=== PATIENT | female | born 1985 | race Caucasian/White ===

== ENCOUNTER 2019-11-20 16:59 | Outpatient (REF) | payer OTHER, SELFPAY ==
--- NOTE | 2019-11-20 15:45 | PAPFT_PTH ---
PATIENT: Sandra Reyna LOC: [facility] U#:[id number] AGE/SX: 34/F ROOM: RE11/20/[address]: Jesi Field : 1985 BED: DIS: 11/20/2019 SPEC #: [id number] RECD: 11/21/19 13:13 STATUS: ANA REQ #: [id number] AMITA: 11/20/19 15:[address]: Jesi Feild DEPT: [facility] Cytology RECD BY: Val Deluca ENTERED: 11/21/19 13:13 SP TYPE: PAPFT OTHR DR: Jasmin Retana Tissues: 1 - CX/ENDOCX FOR PAP SMEARS Procedures: PAP THIN PREP/[facility]VM Screening Comments: [id number] (CHLAMYDIA/GC) (UNSATISFACTORY FOR EVALUATION)
[2019-11-22 11:04] LABS: HSV Type 1 Ab, IgG Negative (Negative); HSV Type 2 Ab, IgG Negative (Negative)
[2019-11-22 11:50] LABS: Syphilis Serology (RPR) Negative (Negative)
[2019-11-22 12:50] LABS: HIV-1/2 Ag & Ab Screen Negative (Negative)
[2019-11-22 13:35] LABS: Chlamydia Result Negative (Negative); GC Result Negative (Negative)
== END 2019-11-20 17:19 ==
LOC: NCHCN 16:59
PROVIDERS: Visit Provider Family Medicine
DX: Z11.3 Encounter for screening for infections with a predominantly sexual mode of transmission (principal); Z11.4 Encounter for screening for human immunodeficiency virus [HIV]; Z11.59 Encounter for screening for other viral diseases; Z12.4 Encounter for screening for malignant neoplasm of cervix; Z11.51 Encounter for screening for human papillomavirus (HPV); R87.615 Unsatisfactory cytologic smear of cervix
CPT/HCPCS: 87389; 87491; 87591; 88142; 86592; 86695; 86696

== ENCOUNTER 2020-09-21 13:36 | Outpatient (REF) | payer OTHER, SELFPAY ==
--- NOTE | 2020-09-21 10:00 | PAPFT_PTH ---
PATIENT: Sandra Reyna LOC: [facility] U#:[id number] AGE/SX: 35/F ROOM: RE09/21/[address]: Jesi Field : 1985 BED: DIS: 09/21/2020 SPEC #: [id number] RECD: 09/21/20 18:02 STATUS: ANA JENSEN #: [id number] AMITA: 09/21/20 10:[address]: Jesi Field [facility] Cytology RECD BY: Val Deluca ENTERED: 09/21/20 18:03 SP TYPE: PAPFT OTHR DR: Jasmin Retana Tissues: 1 - CX/ENDOCX FOR PAP SMEARS Procedures: PAP THIN PREP/UVM Screening HPV DNA PROBE Comments: [id number]
== END 2020-09-21 13:37 | disposition home or self-care (01) ==
LOC: NCHCN 13:36
PROVIDERS: Visit Provider Family Medicine
DX: Z00.00 Encounter for general adult medical examination without abnormal findings (principal); Z12.4 Encounter for screening for malignant neoplasm of cervix; Z01.419 Encounter for gynecological examination (general) (routine) without abnormal findings; Z11.51 Encounter for screening for human papillomavirus (HPV)
CPT/HCPCS: 88142; 87624

== ENCOUNTER 2020-10-07 16:55 | Outpatient (REF) | payer OTHER, SELFPAY ==
[2020-10-09 11:43] LABS: COVID-19 RT-PCR UVMMC Result Negative (Negative)
== END 2020-10-07 16:56 | disposition home or self-care (01) ==
LOC: NCHCN 16:55
PROVIDERS: Visit Provider Family Medicine
DX: Z20.822 Contact with and (suspected) exposure to COVID-19 (principal); J06.9 Acute upper respiratory infection, unspecified
CPT/HCPCS: U0003

== ENCOUNTER 2022-04-07 13:54 | Outpatient (REF) | payer OTHER, SELFPAY ==
[2022-04-07 16:47] LABS: Bacteria Rare HPF (Negative); C & S Indicated? C&S Done As Ordered; Casts Negative LPF (Negative); Crystals Negative HPF (Negative); Epithelial Cells Few HPF (Negative); Mucus Negative (Negative); RBC 0-2 HPF (0-2)
== END 2022-04-07 13:55 | disposition home or self-care (01) ==
LOC: LBN 13:54
PROVIDERS: Visit Provider Physician Assistant Medical
DX: R10.9 Unspecified abdominal pain (principal)
CPT/HCPCS: 81015; 87086

== ENCOUNTER 2022-04-12 02:39 | Outpatient (CLI) | payer OTHER, SELFPAY ==
[2022-04-12] MEDS: Albuterol HFA 18 GM 200 PUFF INH IH (13:56)
[2022-04-12] MEDS: Inhaler, Assist Device 1 EACH MC (13:57)
--- NOTE | 2022-04-13 16:29 | W.PFT ---
Date of service: 04/12/22 Time of Service: 13:02 Pulmonary Function Test Result Requesting Provider Catracho Ramirez Indications: Post acute sequela of COVID 19 (PASC) Interpretation Spirometry: There is no airflow limitation. There is no significant bronchodilator response. Lung Volumes: Normal lung volumes. Diffusion Capacity: Normal diffusion. Airway Pressure: Normal airways resistance. Impression Normal pulmonary function testing. Clinical Correlation therefore is recommended.
== END 2022-04-12 02:40 | disposition home or self-care (01) ==
LOC: RT 02:39
PROVIDERS: Visit Provider Family Medicine
DX: U09.9 Post COVID-19 condition, unspecified (principal)
CPT/HCPCS: 94060; 94726; 94729

== ENCOUNTER 2022-09-30 11:14 | Outpatient (REF) | payer SELFPAY ==
[2022-09-30 15:21] LABS: ESR 36 mm/hr (0-20)
[2022-09-30 15:25] LABS: Abs Immature Grans 0.04 10^3/uL (0.0-0.06); Absolute Basophil Count 0.11 10^3/uL (0.0-0.2); Absolute Lymphocyte Count 3.35 10^3/uL (1.2-3.4); Basophils % 0.9; Eosinophils % 2.8; HCT 41.5 % (36.0-46.0); HGB 14.2 g/dL (11.2-15.7); Immature Grans % 0.3; Lymphocytes % 27.2; MCH 28.8 pg (27.0-33.0); MCHC 34.2 % (32.0-36.0); MCV 84 fL (80-95); MPV 10.7 fL (8.0-11.0); Monocytes % 7.2; Neutrophils % 61.6; Platelet Count 374 10^3/uL (130-400); RBC 4.93 10^6/uL (3.93-5.22); RDW 11.9 % (11.7-14.6); RDW-SD 35.9 fL
[2022-09-30 15:26] LABS: Absolute Eosinophil Count 0.34 10^3/uL (0.0-0.7); Absolute Monocyte Count 0.89 10^3/uL (0.1-0.8); Absolute Neutrophil Count 7.58 10^3/uL (1.2-6.7)
[2022-09-30 16:06] LABS: ALT 32 U/L (14-59); AST 14 U/L (15-37); Albumin 4.1 g/dL (3.4-5.0); Alkaline Phosphatase 84 U/L (46-116); Anion Gap 11.2 mmol/L (3-11); BUN 13 mg/dL (7-18); Bilirubin, Total 0.5 mg/dL (0.2-1.0); C-Reactive Protein 1.89 mg/dL (0.0-0.3); CO2 24.8 mmol/L (21.0-32.0); CREATININE 0.8 mg/dL (0.55-1.02); Calcium 9.5 mg/dL (8.5-10.1); Chloride 106 mmol/L (98-107); Estimated GFR 97.87 (mL/min/1.73m2); Glucose 124 mg/dL (74-106); Potassium 4.2 mmol/L (3.5-5.1); Sodium 142 mmol/L (136-145); TSH (W/Ref FT4) 2.99 uIU/mL (0.36-3.74); Total Protein 7.8 g/dL (6.4-8.2)
[2022-10-02 19:33] LABS: Anaplasma phagocytophilum Negative (Negative); B. miyamotoi PCR Negative (Negative); Babesia divergens/MO-1 Negative (Negative); Babesia duncani Negative (Negative); Babesia microti Negative (Negative); Ehrlichia chaffeensis Negative (Negative); Ehrlichia ewingii/canis Negative (Negative); Ehrlichia muris eauclairensis Negative (Negative)
[2022-10-03 10:19] LABS: Lyme Ab w Rflx to Lyme Confirm Negative (Negative)
== END 2022-09-30 11:15 | disposition home or self-care (01) ==
LOC: NCHCN 11:14
PROVIDERS: PCP Family Medicine; Visit Provider Family Medicine
DX: R53.83 Other fatigue (principal); R50.9 Fever, unspecified; M25.50 Pain in unspecified joint
CPT/HCPCS: 80053; 85652; 87798; 84443; 85025; 86140; 86618

== ENCOUNTER 2024-02-23 01:10 | Outpatient (CLI) | payer BC, SELFPAY ==
--- OUTSIDE RECORDS SUMMARY | 2024-02-23 01:43 | XMS_ITS | Encounter Summary ---
Author Organization [facility] Address [address] [place] [address] Care Team Providers Care Apprentice Lineman Third Step Name Role Phone Unknown, Provider Primary Care Provider Encounter Details Date Type Department Care Team (Latest Contact Info) Description 09/22/2020 Lab Requisition [facility] Pathology & Laboratory Medicine - [facility] [address] [place], [place] [address] Jesi Field MD [address] [place] [address] [phone] Encounter for general adult medical examination without abnormal findings; Encounter for screening for malignant neoplasm of cervix; Encounter for gynecological examination (general) (routine) without abnormal findings Social History Tobacco Use Types Packs/Day Years Used Date Smoking Tobacco: Never Assessed Sex and Gender Information Value Date Recorded Sex Assigned at Not on file Gender Identity Not on file Sexual Orientation Not on file documented as of this encounter Plan of Treatment Not on file documented as of this encounter Procedures Procedure Name Priority Date/Time Associated Diagnosis Comments PAP TEST Today 09/21/2020 10:00 EDT Encounter for general adult medical examination without abnormal findings Encounter for screening for malignant neoplasm of cervix Encounter for gynecological examination (general) (routine) without abnormal findings HPV DNA DETECTION WITH GENOTYPING, PCR Today 09/21/2020 10:00 EDT Encounter for general adult medical examination without abnormal findings Encounter for screening for malignant neoplasm of cervix Encounter for gynecological examination (general) (routine) without abnormal findings documented in this encounter Results * HUMAN PAPILLOMAVIRUS (HPV) DETECTION-HIGH RISK TYPES (09/21/2020 10:00 EDT) HPV other High Risk types, PCR Negative Negative 09/29/2020 16:22 EDT [facility] Comment:No E6 or E7 mRNA is detected from HPV types 16,18,31,33,35,39,45,51,52,56,58,59,66, and 68 by shot peen operator mediated amplification. Papanicolaou smear specimen (specimen) CERVIX UTERI STRUCTURE / Unknown 09/21/2020 10:00 EDT 09/25/2020 13:04 EDT Jesi Field MD MICROBIOLOGY - GENER AL ORDERABLES [facility] [address] [place] [address] * PAP TEST (09/21/2020 10:00 EDT) Specimens A. Cervix and/or Endocervix , ThinPrep Imaging System with Manual Evaluation 09/29/2020 16:22 [facility] Specimen Adequacy Satisfactory for Evaluation - transformation zone component present 09/29/2020 16:22 [facility] General Categorization Negative for intraepithelial lesion or malignancy 09/29/2020 16:22 [facility] Descriptive Diagnosis Shift in milana present suggestive of bacterial vaginosis. 09/29/2020 16:22 [facility] Attestation . 09/29/2020 16:22 [facility] at 1622 Clinical History See below 09/30/19 16:22 [facility] HPV The result for the Human Papillomavirus (HPV) Detection-High Risk Types is Negative. No E6 or E7 mRNA is detected from HPV types 16,18,31,33,35,39 ,45,51,52,56,58,5 9,66, and 68 by shot peen operator mediated amplification.Lorena ting was performed on specimen [id number] and was resulted on 09/29/2020 1619 EDT by JITENDRA, LAB INSTRUMENT RESULTS IN 09/29/2020 16:22 EDT [facility] Performing Lab [facility] 09/29/2020 16:22 EDT [facility] Scanned Images 09/29/2020 16:22 EDT [facility] Papanicolaou smear specimen (specimen) CERVIX UTERI STRUCTURE / Unknown 09/21/2020 10:00 EDT 09/22/2020 10:42 EDT Jesi Field MD PATHOLOGY ORDERABLES [facility] [address] [place] [address] documented in this encounter Visit Diagnoses Diagnosis Encounter for general adult medical examination without abnormal findings Unspecified general medical examination Encounter for screening for malignant neoplasm of cervix Screening for malignant neoplasm of the cervix Encounter for gynecological examination (general) (routine) without abnormal findings documented in this encounter Care Teams Apprentice Lineman Third Step Relationship Specialty Start Date End Date Unknown, Provider, PCP - General 09/19/17 documented as of this encounter
--- OUTSIDE RECORDS SUMMARY | 2024-02-23 01:43 | XMS_ITS | Encounter Summary ---
Author Organization [facility] Address [address] [place] [address] Care Team Providers Care Critical Care Transport Nurse Name Role Phone Unknown, Provider Primary Care Provider [phone] Encounter Details Date Type Department Care Team (Late st Contact Info) Description 12/23/2008 Orders Only [facility] - [facility] ([facility] [address] [place], [place] [address] Kathi Hernandez, [facility] [address] [place] [phone] Social History Tobacco Use Types Packs/Day Years Used Date Smoking Tobacco: Never Assessed Sex and Gender Information Value Date Recorded Sex Assigned at Not on file Gender Identity Not on file Sexual Orientation Not on file documented as of this encounter Plan of Treatment Not on file documented as of this encounter Procedures Procedure Name Priority Date/Time Associated Diagnosis Comments CYTOPATHOLOGY Routine 12/23/2008 0:00 EDT documented in this encounter Results * CYTOPATHOLOGY (12/23/2008 0:00 EDT) Pathology Report: CYTOPATHOLOGY REPORT ? Reports generated via electronic interface contain original data; ? however they are lacking the format of the original report. ? Caution should be taken when reading/interpreti ng unformatted reports. ? Name: ? CHUN, SANDRA ? Accession #: ? [id number] ? : ? 1985 (Age: 23) ??F ?Collect Date: ? 12/23/2008 ? Location: ? [facility] ? Receive Date: ? 12/24/2008 ? Provider: ?KATHI LATOYA DONOR SERVICES TEAM LEADER ? Copy to: ? Specimen/Source: ?Pap Test, Cervix/Endocervix, ThinPrep Imaging System ? with manual evaluation ? Last Menstrual Period: ? 6/29/09 ? Other: ? HPVA - HPV testing requested if ASC-US on the current ThinPrep Pap test. ? SPECIMEN ADEQUACY ? Satisfactory for Evaluation ? - transformation zone component present ? GENERAL CATEGORIZATION ? Negative for Intraepithelial Lesion or Malignancy ? Document reviewed and electronically signed by: ? Grace Neal, [place](ASCP) ? Report Date: ??12/29/2008 14:40 ? End of Report ? [facility] 12/23/2008 12/24/2008 Kathi Hernandez DONOR SERVICES TEAM LEADER PATHOLOGY ORDERABLES [facility] [address] [place] [address] documented in this encounter Visit Diagnoses Not on filedocumented in this encounter Care Teams Critical Care Transport Nurse Relationship Specialty Start Date End Date Unknown, Provider, PCP - General 12/24/08 12/15/10 documented as of this encounter
--- OUTSIDE RECORDS SUMMARY | 2024-02-23 01:43 | XMS_ITS | Encounter Summary ---
Author Organization [facility] Address [address] [place] [address] Care Team Providers Care Dag Coater Name Role Phone William Carrero MD Primary Care Provider Un available Unknown, Provider Primary Care Provider [phone] Encounter Details Date Type Department Care Team (Late st Contact Info) Description 09/15/[address] [facility] [phone] Latrice Chopra, [address] [phone] Social History Tobacco Use Types Packs/Day Years Used Date Smoking Tobacco: Never Assessed Sex and Gender Information Value Date Recorded Sex Assigned at Not on file Gender Identity Not on file Sexual Orientation Not on file documented as of this encounter Plan of Treatment Not on file documented as of this encounter Procedures Procedure Name Priority Date/Time Associated Diagnosis Comments PAP TEST- RESULT ONLY Routine 09/15/2017 0:00 EDT documented in this encounter Results * PAP TEST- RESULT ONLY (09/15/2017 0:00 EDT) Pathology Report: CYTOPATHOLOGY REPORT Reports generated via electronic interface contain original data; however they are lacking the format of the original report. Caution should be taken when reading/interpreti ng unformatted reports. Name: ? SANDRA NAVA ? Accession #: ? [id number] ? : ? 1985 (Age: 32) ??F ?Collect Date: ? 09/15/2017 ? Location: ? [facility] ? Receive Date: ? 09/19/2017 ? Provider: LATRICE ZAPIEN ACCOUNT SUPPORT ASSOCIATE-BC Copy to: ? Final Report SPECIMEN ADEQUACY ? Satisfactory for Evaluation - transformation zone component absent GENERAL CATEGORIZATION ? Negative for Intraepithelial Lesion or Malignancy ?? Last Menstrual Period: 2012 Hormonal/Contracep tive status: Intrauterine device Specimen/Source: ??Pap Test, Cervix, ThinPrep Imaging System with manual evaluation Document reviewed and electronically signed by: ? Sarah Zhou, [facility](ASCP) ? Report ??Date: 09/26/2017 10:26 HPV with Pap Test ? Date Ordered: ? 09/26/2017 ? Status: ?? Signed Out ?Date Complete: ? 09/27/2017 ? By: ??System Interface ? Date Reported: ? 09/27/2017 ? Interpretation RESULT: Negative for HPV. No E6 or E7 mRNA is detected from HPV types 16,18,31,33,35, 39,45,51,52,56,58, 59,66, and 68 by cut off saw operator mediated amplification. Comments Document reviewed and electronically signed by: ? System Interface ? Report date: 09/27/2017 By the signature above, the attending physician certifies that he/she has personally conducted a gross and/or microscopic examination of the described specimens and rendered or confirmed the above diagnosis. End of Report [facility] 09/15/2017 09/19/2017 Latrice Chopra ACCOUNT SUPPORT ASSOCIATE- PATHOLOGY ORDERA LAUREN [facility] [address] [place] [address] documented in this encounter Visit Diagnoses Not on filedocumented in this encounter Care Teams Dag Coater Relationship Specialty Start Date End Date William Carrero MD PCP - General 12/16/10 09/18/17 Unknown, ProviderMD PCP - General 09/19/17 documented as of this encounter
--- OUTSIDE RECORDS SUMMARY | 2024-02-23 01:43 | XMS_ITS | Encounter Summary ---
Author Organization [facility] Address [address] [place] [address] Care Team Providers Care X Ray Consultant Name Role Phone Unknown, Provider Primary Care Provider Encounter Details Date Type Department Care Team (Latest Contact Info) Description 11/21/2019 Lab Requisition [facility] Pathology & Laboratory Medicine - [facility] [address] [place] [address] Jesi Field MD [address] [place] [address] [phone] Encounter for general adult medical examination without [...] Date/Time Associated Diagnosis Comments PAP TEST Today 11/20/2019 15:45 EDT Encounter for general adult medical examination without abnormal findings Encounter for screening for malignant neoplasm of cervix Encounter for gynecological examination (general) (routine) without abnormal findings CHLAMYDIA/N. GONORRHOEAE AMPLIFIED NUCLEIC ACID, THINPREP Today 11/20/2019 15:45 EDT documented in this encounter Results * PAP TEST (11/20/2019 15:45 EDT) Specimens A. Cervix and/or Endocervix , ThinPrep Imaging System with Manual Evaluation 11/28/2019 13:20 [facility] Specimen Adequacy Unsatisfactory for evaluation - insufficient numbers of squamous epithelial cells (less than 10% of expected cellularity). 11/28/2019 13:20 T [facility] General Categorization Unsatisfactory 11/28/2019 13:20 [facility] Attestation . 11/28/2019 13:20 [facility] at 1320 Educational Comments An additional slide was prepared and evaluated. Unsatisfactory - Specimen processed and examined, but unsatisfactory for evaluation of epithelial abnormality. Recommend Pap test in 2-4 months as stated in ASCCP's 2012 Updated Guidelines. HPV testing will not be performed due to the potential for false negative results. 11/28/2019 13:20 EDT [facility] Clinical History NONE 11/28/19 13:20 T [facility] Scanned Images 11/28/2019 13:20 T [facility] Papanicolaou smear specimen (specimen) CERVIX UTERI STRUCTURE / Unknown 11/20/2019 15:45 EDT 11/22/2019 10:46 EDT Jesi Field MD PATHOLOGY ORDERABLES Performing Organization Address City/State/[facility] Co de Phone Number [facility] [address] [place] [address] * CHLAMYDIA/N. GONORRHOEAE AMPLIFIED RNA, THINPREP (11/20/2019 15:45 EDT) Neisseria gonorrhoeae Result Negative Negative 11/22/2019 13:30 EDT [facility] Chlamydia trachomatis Result Negative Negative 11/22/2019 13:30 EDT [facility] Papanicolaou smear specimen (specimen) CERVIX UTERI STRUCTURE / Unknown 11/20/2019 15:45 EDT 11/22/2019 8:54 EDT Jesi Field MD MICROBIOLOGY - GENER AL ORDERABLES [facility] [address] [place] [address] documented in this encounter Visit Diagnoses Diagnosis Encounter for general adult medical examination without abnormal findings Unspecified general medical examination Encounter for screening for malignant neoplasm of cervix Screening for malignant neoplasm of the cervix Encounter for gynecological examination (general) (routine) without abnormal findings documented in this encounter Care Teams X Ray Consultant Relationship Specialty Start Date End Date Unknown, Provider, PCP - General 09/19/17 documented as of this encounter
--- OUTSIDE RECORDS SUMMARY | 2024-02-23 01:43 | XMS_ITS | Clinical Summary ---
Author Organization [facility] [place] [address] Care Team Providers Care Wire Coating Machine Operator Name Role Phone Jasmin Retana MD Primary Care Provider [phone] Allergies No known active allergies Medications No known medications Active Problems Problem Noted Date Diagnosed Date Acute urticaria 05/21/2015 Social History Tobacco Use Types Packs/Day Years Used Date Smoking Tobacco: Never Assessed Sex and Gender Information Value Date Recorded Sex Assigned at Not on file Gender Identity Not on file Sexual Orientation Not on file Plan of Treatment Health Maintenance Due Date Last Done Comments HIV screen 2004 Hepatitis C Screening 2004 Hepatitis B vaccine (0-59 yrs) (1) 2005 Tdap adult 2005 Tetanus vaccine 2005 HPV test 2016 PAP Smear 2016 Covid-19 Vaccine ( season) 2024 Influenza (Flu) vaccine (1 o f 1 - Influenza standard series) 02/18/2024 Care Teams Wire Coating Machine Operator Relationship Specialty Start Date End Date Jasmin Retana MD [address] [place], [place] [id number] PCP - General Family Medicine 05/21/15
--- OUTSIDE RECORDS SUMMARY | 2024-02-23 01:43 | XMS_ITS | Encounter Summary ---
Author Organization [facility] Address [address] [place] [address] Care Team Providers Care Goggles Assembler Name Role Phone Unknown, Provider Primary Care Provider [phone] Encounter Details Date Type Department Care Team (Late st Contact Info) Description 02/02/2006 Results Only [facility] [address] [place] [address] Torrey Bhardwaj MD [address] [place] [address] Social History Tobacco Use Types Packs/Day Years Used Date Smoking Tobacco: Never Assessed Sex and Gender Information Value Date Recorded Sex Assigned at Not on file Gender Identity Not on file Sexual Orientation Not on file documented as of this encounter Plan of Treatment Not on file documented as of this encounter Procedures Procedure Name Priority Date/Time Associated Diagnosis Comments SURGICAL PATHOLOGY Routine 02/02/2006 0:00 EDT documented in this encounter Results * SURGICAL PATHOLOGY (02/02/2006 0:00 EDT) Pathology Report: SURGICAL PATHOLOGY REPORT Reports generated via electronic interface contain original data; however they are lacking the format of the original report. Caution should be taken when reading/interpreti ng unformatted reports. Name: ? SANDRA MCCOLLUM ? Accession #: ? [id number] ? : ? 1985 (Age: 20) ??F ? Collect Date: ? 02/02/2006 ? Location: ? [facility] ? Receive Date: ? 02/02/2006 ? Provider: TORREY BHARDWAJ MD Copy to: ? Final Pathologic Diagnosis: ? Gallbladder, cholecystectomy: 1. ?Chronic cholecystitis. 2. ?Cholelithiasis. Document reviewed and electronically signed by: REGAN HEATH MD Report ??Date: 02/06/2006 15:43 By the signature above, the attending physician certifies that he/she has personally conducted a gross and/or microscopic examination of the described specimens and rendered or confirmed the above diagnosis. Specimen(s) Received: ? Gallbladder Clinical History: ? Acute biliary colic Gross Description: ? Received in formalin labelled Day and gallbladder is a product of an intact cholecystectomy measuring 6.5 cm in length, 2.2 cm in diameter, and is surfaced by a sesay, glistening serosa. ??Upon sectioning, the mucosa is sesay-green and smooth to velvety with a focal yellow streaking. ??The underlying wall averages 0.2 cm in thickness. ??The lumen contains a minimal amount of green mucoid bile and multiple yellow, partially fragmented, mulberry choleliths measuring 1.5 x 1.0 x 0.5 cm in aggregate. ??The cystic duct measures 0.3 cm in length, 0.3 cm in diameter, and is not grossly patent. ??The cystic duct node is not grossly identified. ??Three account development representative sections are submitted in one cassette, which includes a cystic duct margin and two sections of gallbladder. (Tyree Valles/[facility] End of Report [facility] 02/02/2006 02/02/2006 8:4 7 EDT Torrey Bhardwaj MD [place] [address] documented in this encounter Visit Diagnoses Not on filedocumented in this encounter Care Teams Goggles Assembler Relationship Specialty Start Date End Date Unknown, Provider, PCP - General 12/24/08 12/15/10 documented as of this encounter
--- OUTSIDE RECORDS SUMMARY | 2024-02-23 01:43 | XMS_ITS | Referral Summary ---
Author Organization [facility] Address [address] [place] [address] Care Team Providers Care Scissors Sharpener Name Role Phone Unknown, Provider Primary Care Provider Social History Tobacco Use Types Packs/Day Years Used Date Smoking Tobacco: Never Assessed Sex and Gender Information Value Date Recorded Sex Assigned at Not on file Gender Identity Not on file Sexual Orientation Not on file Plan of Treatment Not on file Care Teams Scissors Sharpener Relationship Specialty Start Date End Date Unknown, Provider, PCP - General 09/19/17
--- OUTSIDE RECORDS SUMMARY | 2024-02-23 01:43 | XMS_ITS | Encounter Summary ---
Author Organization [facility] Address [address] [place] [address] Care Team Providers Care Front End Web Designer Name Role Phone William Carrero MD Primary Care Provider Un available Encounter Details Date Type Department Care Team (Late st Contact Info) Description 07/11/2012 Results Only [facility] [phone] Vasquez Wyatt MD [address] [place] [phone] Social History Tobacco Use Types Packs/Day Years [...] Diagnosis Comments PAP TEST- RESULT ONLY Routine 07/11/2012 0:00 EST documented in this encounter Results * PAP TEST- RESULT ONLY (07/11/2012 0:00 EST) Pathology Report: CYTOPATHOLOGY REPORT Reports generated via electronic interface contain original data; however they are lacking the format of the original report. Caution should be taken when reading/interpreti ng unformatted reports. Name: ? SANDRA MCCOLLUM ? Accession #: ? [id number] : ? 1985 (Age: 27) ??F ?Collect Date: ? 07/11/2012 Location: ? [facility] ? Receive Date: ? 07/12/2012 Provider: ?VASQUEZ WYATT MD Copy to: ? Specimen/Source: ?Pap Test, Cervix/Endocervix, ThinPrep Imaging System with manual evaluation Last Menstrual Period: ? 07/03/12 Menstrual/Pregnanc y Status: ? Post ? SPECIMEN ADEQUACY ? Satisfactory for Evaluation - transformation zone component present GENERAL CATEGORIZATION ? Negative for Intraepithelial Lesion or Malignancy ? Document reviewed and electronically signed by: ? January Tang, CT(ASCP) ? Report Date: ??07/18/2012 16:19 End of Report [facility] 07/11/2012 07/12/2012 Vasquez Wyatt MD PATHOLOGY ORDERABLES [facility] [address] [place] [address] documented in this encounter Visit Diagnoses Not on filedocumented in this encounter Care Teams Front End Web Designer Relationship Specialty Start Date End Date William Carrero MD PCP - General 12/16/10 09/18/17 documented as of this encounter
--- OUTSIDE RECORDS SUMMARY | 2024-02-23 01:43 | XMS_ITS | Encounter Summary ---
Author Organization [facility] Address [address] [place] [address] Care Team Providers Care Floor Specialist Name Role Phone Unknown, Provider Primary Care Provider Encounter Details Date Type Department Care Team (Late st Contact Info) Description 10/08/2020 Lab Requisition [facility] Pathology & Laboratory Medicine - [address] [address] Outr Resulting Lab, Provider Social History Tobacco Use Types Packs/Day Years Used Date Smoking Tobacco: Never Assessed Sex and Gender Information Value Date Recorded Sex Assigned at Not on file Gender Identity Not on file Sexual Orientation Not on file documented as of this encounter Plan of Treatment Not on file documented as of this encounter Procedures Procedure Name Priority Date/Time Associated Diagnosis Comments ZZCOVID-19 TEST [facility] PCR Today 10/07/2020 16:55 EDT COVID-19 TESTING Routine 10/07/2020 16:5 5 EDT documented in this encounter Results * COVID-19 TEST [facility] PCR (10/07/2020 16:55 EDT) Swab ENTIRE NASOPHARYNX / Unknown 10/07/2020 16:55 EDT 10/08/2020 16:58 EDT Provider Outr Resulting Lab MICROBIOLOGY - GENERAL ORDERABLES [facility] [address] [place] [address] * COVID-19 TESTING (10/07/2020 16:55 EDT) COVID-19 rt-PCR Result Negative Negative 10/09/2020 11:38 EDT [facility] Comment: This test has not been FDA cleared or approved. This test has been authorized by FDA under an EUA for use by authorized laboratories. This test has been authorized only for detection of nucleic acid from 2019-nCoV, not for any other viruses or pathogens. This test is only authorized for the duration of the declaration that circumstances exist justifying the authorization of emergency use of in vitro diagnostic tests for detection and/or diagnosis of 2019-nCoV under section 564(b)(1) of Act, 21 U.S.C ?? 360bbb-3(b) (1), unless the authorization is terminated or revoked sooner. Negative results do not preclude 2019-nCoV infection and should not be used as the sole basis for treatment or other patient management decisions. Negative results must be combined with clinical observations, patient history, and epidemiological information. Testing was performed using the elizabeth SARS-CoV-2 assay ([employer] on the Elizabeth 6800 System Performing Lab Elizabeth [address] [facility] 10/09/2020 11:38 EDT [facility] Swab 10/07/2020 16:5 5 EDT 10/08/2020 16:58 EDT Provider Outr Resulting Lab MICROBIOLOGY - GENERAL ORDERABLES [facility] [address] [place] [address] documented in this encounter Visit Diagnoses Not on filedocumented in this encounter Care Teams Floor Specialist Relationship Specialty Start Date End Date Unknown, Provider, PCP - General 09/19/17 documented as of this encounter
--- OUTSIDE RECORDS SUMMARY | 2024-02-23 01:43 | XMS_ITS | Encounter Summary ---
Author Organization [facility] Address [address] [place] [address] Care Team Providers Care Chemical Engraver Name Role Phone Unknown, Provider Primary Care Provider Encounter Details Date Type Department Care Team (Late st Contact Info) Description 04/19/2010 Results Only [facility] [phone] Vasquez Wyatt MD [address] [place] [address] Social History Tobacco Use Types Packs/Day Years Used Date Smoking Tobacco: Never Assessed Sex and Gender Information Value Date Recorded Sex Assigned at Not on file Gender Identity Not on file Sexual Orientation Not on file documented as of this encounter Plan of Treatment Not on file documented as of this encounter Procedures Procedure Name Priority Date/Time Associated Diagnosis Comments CYTOPATHOLOGY Routine 04/19/2010 0:00 EDT documented in this encounter Results * CYTOPATHOLOGY (04/19/2010 0:00 EDT) Pathology Report: CYTOPATHOLOGY REPORT ? Reports generated via electronic interface contain original data; ? however they are lacking the format of the original report. ? Caution should be taken when reading/interpreti ng unformatted reports. ? Name: ? CHUN, SANDRA ? Accession #: ? [id number] ? : ? 1985 (Age: 25) ??F ?Collect Date: ? 04/19/2010 ? Location: ? [facility] ? Receive Date: ? 04/20/2010 ? Provider: ?VASQUEZ WYATT MD ? Copy to: ? Specimen/Source: ?Pap Test, Cervix/Endocervix, ThinPrep Imaging System ? with manual evaluation ? Last Menstrual Period: ? Menstrual/Pregnanc y Status: ? Post ? Other: ? Additional clinical information: Last pap 7/7/09 neg. ? SPECIMEN ADEQUACY ? Satisfactory for Evaluation ? - transformation zone component present ? GENERAL CATEGORIZATION ? Negative for Intraepithelial Lesion or Malignancy ? Document reviewed and electronically signed by: ? Joanne Urias, CT(ASCP)(IAC) ? Report Date: ??04/21/2010 17:16 ? End of Report ? HEDY MIRELES 04/19/2010 04/20/2010 Vasquez Wyatt MD PATHOLOGY ORDERABLES Performing Organization Address City/State/[facility] Co de Phone Number [facility] [address] [place] [address] documented in this encounter Visit Diagnoses Not on filedocumented in this encounter Care Teams Chemical Engraver Relationship Specialty Start Date End Date Unknown, Provider, PCP - General 12/24/08 12/15/10 documented as of this encounter
--- OUTSIDE RECORDS SUMMARY | 2024-02-23 01:43 | XMS_ITS | Encounter Summary ---
Author Organization [facility] [place] [address] Care Team Providers Care Bilingual Executive Assistant Name Role Phone Jasmin Retana MD Primary Care Provider [phone] Encounter Details Date Type Department Care Team (Late st Contact Info) Description 05/21/2015 4:00 PM EST Office Visit Dermatology at [address] [place] [address] Ramon Mckeon MD [address], [place] [address] Acute urticaria Social History Tobacco Use Types Packs/Day Years Used Date Smoking Tobacco: Never Assessed Sex and Gender Information Value Date Recorded Sex Assigned at Not on file Gender Identity Not on file Sexual Orientation Not on file documented as of this encounter Plan of Treatment Not on file documented as of this encounter Visit Diagnoses Diagnosis Acute urticaria Other specified urticaria documented in this encounter Care Teams Bilingual Executive Assistant Relationship Specialty Start Date End Date Jasmin Retana MD [address] [place] [address] PCP - General Family Medicine 05/21/15 documented as of this encounter
--- OUTSIDE RECORDS SUMMARY | 2024-02-23 01:43 | XMS_ITS | Clinical Summary ---
Author Organization [facility] Address [address] [place] [address] Care Team Providers Care Last Ironer Name Role Phone Unknown, Provider Primary Care Provider Social History Tobacco Use Types Packs/Day Years Used Date Smoking Tobacco: Never Assessed Sex and Gender Information Value Date Recorded Sex Assigned at Not on file Gender Identity Not on file Sexual Orientation Not on file Plan of Treatment Health Maintenance Due Date Last Done Comments Hepatitis C Screen 1985 Hepatitis B Vaccine (1 of 3 - 19+ 3-dose series) 03/17 COVID-19 Vaccine ( season) 2023 Care Teams Last Ironer Relationship Specialty Start Date End Date Unknown, Provider, PCP - General 09/19/17
--- OUTSIDE RECORDS SUMMARY | 2024-02-23 01:43 | XMS_ITS | Encounter Summary ---
Author Organization [facility] Address [address] [place] [address] Care Team Providers Care Ticket Agent Name Role Phone Unknown, Provider Primary Care Provider [phone] Encounter Details Date Type Department Care Team (Late st Contact Info) Description 11/21/2019 Lab Requisition [facility] Pathology & Laboratory Medicine - [facility] [address] [place], [place] [address] Outr Resulting Lab, Provider Social History Tobacco [...] Procedure Name Priority Date/Time Associated Diagnosis Comments SYPHILIS SEROLOGY Routine 11/20/2019 16: 05 EDT HERPES SIMPLEX VIRUS (HSV) TYPE 1 & 2 AB, IGG Routine 11/20/2019 16:05 EDT documented in this encounter Results * SYPHILIS SEROLOGY (11/20/2019 16:05 EDT) Syphilis Serology Negative Negative 11/22/2019 11:45 EDT [facility] Blood VENOUS BLOOD / Unknown 11/20/2019 16:05 EDT 11/21/2019 16:06 EDT Provider Outr Resulting Lab IMMUNOLOGY A ND SEROLOGY ORDERABLES [facility] [address] [place] [address] * HERPES SIMPLEX VIRUS (HSV) TYPE 1 & 2 AB, IGG (11/20/2019 16:05 EDT) HSV Type 1 Ab, IgG Negative Negative 11/22/2019 11:01 EDT [facility] Comment: No detectable antibodies to HSV 1 were found. A negative result generally indicates that the patient has not been infected, but does not always rule out acute HSV infection. If clinical exposure to HSV is suspected despite a negative finding a second sample should be collected and tested no less than 4-6 weeks later. HSV Type 2 Ab, IgG Negative Negative 11/22/2019 11:01 EDT [facility] Comment: No detectable antibodies to HSV 2 were found. A negative result generally indicates that the patient has not been infected, but does not always rule out acute HSV infection. If clinical exposure to HSV is suspected despite a negative finding a second sample should be collected and tested no less than 4-6 weeks later. Blood VENOUS BLOOD / Unknown 11/20/2019 16:05 EDT 11/21/2019 16:06 EDT Provider Outr Resulting Lab IMMUNOLOGY A ND SEROLOGY ORDERABLES [facility] [address] [place] [address] documented in this encounter Visit Diagnoses Not on filedocumented in this encounter Care Teams Ticket Agent Relationship Specialty Start Date End Date Unknown, Provider, PCP - General 09/19/17 documented as of this encounter
--- OUTSIDE RECORDS SUMMARY | 2024-02-23 01:43 | XMS_ITS | Encounter Summary ---
Author Organization [facility] Address [address] [place] [address] Care Team Providers Care Sanitation Truck Cleaner Name Role Phone Unknown, Provider Primary Care Provider [phone] Encounter Details Date Type Department Care Team (Late st Contact Info) Description 09/30/2022 Lab Requisition [facility] Pathology & Laboratory Medicine - [facility] [address] [place] [address] Outr Resulting Lab, Provider Social History Tobacco [...] Procedure Name Priority Date/Time Associated Diagnosis Comments LYME AB Routine 09/30/2022 11:00 EDT documented in this encounter Results * LYME AB (09/30/2022 11:00 EDT) Lyme Ab Negative Negative 10/03/2022 10:14 EDT [facility] Blood VENOUS BLOOD / Unknown 09/30/2022 11:00 EDT 09/30/2022 21:17 EDT Provider Outr Resulting Lab IMMUNOLOGY A ND SEROLOGY ORDERABLES [facility] [address] [place] [address] documented in this encounter Visit Diagnoses Not on filedocumented in this encounter Care Teams Sanitation Truck Cleaner Relationship Specialty Start Date End Date Unknown, Provider, PCP - General 09/19/17 documented as of this encounter
--- OUTSIDE RECORDS SUMMARY | 2024-02-23 01:43 | XMS_ITS | Encounter Summary ---
Author Organization [facility] Address [address] [place] [address] Care Team Providers Care Toll Settlement Clerk Name Role Phone Unknown, Provider Primary Care Provider Encounter Details Date Type Department Care Team (Late st Contact Info) Description 11/21/2019 Lab Requisition [facility] Pathology & Laboratory Medicine - [facility] [address] [place] [address] Outr Resulting Lab, Provider Social History Tobacco [...] Procedure Name Priority Date/Time Associated Diagnosis Comments HIV 1/2 ANTIGEN AND ANTIBODY, 4TH GENERATION Routine 11/20/2019 16:05 EDT documented in this encounter Results * HIV 1/2 ANTIGEN AND ANTIBODY, 4TH GENERATION (11/20/2019 16:05 EDT) HIV 1 and 2 Antibody/p24 Antigen, 4th Generation Negative Negative 11/22/2019 12:46 EDT [facility] Comment: If acute HIV-1 infection is suspected in a high risk ??patient, submit plasma specimen for HIV-1 RNA quantitation test. Fourth Generation assay performed on the [employer]. Blood VENOUS BLOOD / Unknown 11/20/2019 16:05 EDT 11/21/2019 16:13 EDT Provider Outr Resulting Lab IMMUNOLOGY A ND SEROLOGY ORDERABLES [facility] [address] [place] [address] documented in this encounter Visit Diagnoses Not on filedocumented in this encounter Care Teams Toll Settlement Clerk Relationship Specialty Start Date End Date Unknown, Provider, PCP - General 09/19/17 documented as of this encounter
--- OUTSIDE RECORDS SUMMARY | 2024-02-23 01:43 | XMS_ITS | Encounter Summary ---
Author Organization [facility] Address [address] [place] [address] Care Team Providers Care Refinish Technician Name Role Phone Unknown, Provider Primary Care Provider Encounter Details Date Type Department Care Team (Late st Contact Info) Description 05/17/2006 Results Only [facility] [address] [place] [address] [address] [place], [place] [id number] Social History Tobacco Use Types Packs/Day Years Used Date Smoking Tobacco: Never Assessed Sex and Gender Information Value Date Recorded Sex Assigned at Not on file Gender Identity Not on file Sexual Orientation Not on file documented as of this encounter Plan of Treatment Not on file documented as of this encounter Procedures Procedure Name Priority Date/Time Associated Diagnosis Comments CYTOPATHOLOGY Routine 05/17/2006 0:00 EST documented in this encounter Results * CYTOPATHOLOGY (05/17/2006 0:00 EST) Pathology Report: CYTOPATHOLOGY REPORT Reports generated via electronic interface contain original data; however they are lacking the format of the original report. Caution should be taken when reading/interpreti ng unformatted reports. Name: ? SANDRA MCCOLLUM ? Accession #: ? [id number] : ? 1985 (Age: 21) ??F ?Collect Date: ? 05/17/2006 Location: ? [facility] ? Receive Date: ? 05/18/2006 Provider: ?ANELuisa REED CNM Copy to: ? Specimen/Source: ?ThinPrep Pap Test, Cervix/Endocervix, processed on [employer] ThinPrep Imaging System, with manual evaluation Last Menstrual Period: ? 03/07/06 Menstrual/Pregnanc y Status: ? SPECIMEN ADEQUACY ? Satisfactory for Evaluation - transformation zone component present - scant squamous epithelial component secondary to excessive blood GENERAL CATEGORIZATION ? Negative for Intraepithelial Lesion or Malignancy ? Document reviewed and electronically signed by: ? Stacey Redding, SCT(ASCP) ? Report Date: ??05/25/2006 08:57 End of Report HEDY MIRELES 05/17/2006 05/18/2006 Anea Devonte CNM PATHOLOGY ORDERABLES Performing Organization Address City/State/[facility] Co de Phone Number HEDY MIRELES [address] [place] [address] documented in this encounter Visit Diagnoses Not on filedocumented in this encounter Care Teams Refinish Technician Relationship Specialty Start Date End Date Unknown, Provider, PCP - General 12/24/08 12/15/10 documented as of this encounter
--- OUTSIDE RECORDS SUMMARY | 2024-02-23 01:43 | XMS_ITS | Encounter Summary ---
Author Organization [facility] Address [address] [place] [address] Care Team Providers Care Room Service Server Name Role Phone Unknown, Provider Primary Care Provider Encounter Details Date Type Department Care Team (Late st Contact Info) Description 12/14/2010 Results Only [facility] Laboratory Services - [facility] ([facility]) [address] [place], [place] [id number] Ria Brand MD [address] [place] [address] [address] [place] [id number] Social History Tobacco Use Types Packs/Day Years Used Date Smoking Tobacco: Never Assessed Sex and Gender Information Value Date Recorded Sex Assigned at Not on file Gender Identity Not on file Sexual Orientation Not on file documented as of this encounter Plan of Treatment Not on file documented as of this encounter Procedures Procedure Name Priority Date/Time Associated Diagnosis Comments SURGICAL PATHOLOGY Routine 12/14/2010 0:00 EDT documented in this encounter Results * SURGICAL PATHOLOGY (12/14/2010 0:00 EDT) Pathology Report: SURGICAL PATHOLOGY REPORT ? Reports generated via electronic interface contain original data; ? however they are lacking the format of the original report. ? Caution should be taken when reading/interpreti ng unformatted reports. ? Name: ? MCCOLLUM, SANDRA M ? Accession #: ? [id number] ? : ? 1985 (Age: 25) ??F ? Collect Date: ? 12/14/2010 ? Location: ? [facility] ? Receive Date: ? 12/15/2010 ? Provider: TAMAR DAMIAN DO ? Copy to: ? Final Pathologic Diagnosis: ? Skin of ear, right posterior helix, shave biopsy: ? - Melanocytic nevus, intradermal type. ? Microscopic Description: ? Sections are of a papule with mild epidermal hyperplasia and ? hyperkeratosis. ??There is a proliferation of melanocytes within the dermis. ??The proliferation consists of nests, cords, and strands that diminish in size with ?? descent into the dermis. ??The melanocytes are slightly enlarged but generally ?? have round-oval nuclei and a moderate amount of cytoplasm. ??The melanocytes show package sorter maturation. ??(Dr. Barboza)/mpl ? Document reviewed and electronically signed by: ? SEBASTIAN BARBOZA MD ? Report ??Date: 12/16/2010 15:08 ? By the signature above, the attending physician certifies that he/she has ? personally conducted a gross and/or microscopic examination of the described ? specimens and rendered or confirmed the above diagnosis. ? Specimen(s) Received: ? Mole posterior right ear helix tissue ? Clinical History: ? Right ear lesion; clinical diagnosis code: 782.2 ? Gross Description: ? Received in formalin labelled Mccollum, Sandra and R ear lesion is a 0.5 x 0.4 x 0.4 cm irregular sesay-white bosselated papule. ??The margin is inked. ??The ?? specimen is bisected and entirely submitted in a single cassette. ??(Wing Booth)/mms ? End of Report ? HEDY MIRELES 12/14/2010 12/15/2010 9:0 5 EDT Tamar Damian DO PATHOLOGY ORDERABLES [facility] [address] [place] [address] documented in this encounter Visit Diagnoses Not on filedocumented in this encounter Care Teams Room Service Server Relationship Specialty Start Date End Date Unknown, Provider, PCP - General 12/24/08 12/15/10 documented as of this encounter
--- OUTSIDE RECORDS SUMMARY | 2024-02-23 01:43 | XMS_ITS | Encounter Summary ---
Author Organization [facility] Address [address] [place] [address] Care Team Providers Care Curriculum Development Specialist Name Role Phone William Carrero MD Primary Care Provider Un available Encounter Details Date Type Department Care Team (Late st Contact Info) Description 05/11/2012 Results Only [facility] Laboratory Services - [facility] [address] [place] [id number] Unknown, Provider, Social History Tobacco Use Types Packs/Day Years Used Date Smoking Tobacco: Never Assessed Sex and Gender Information Value Date Recorded Sex Assigned at Not on file Gender Identity Not on file Sexual Orientation Not on file documented as of this encounter Plan of Treatment Not on file documented as of this encounter Procedures Procedure Name Priority Date/Time Associated Diagnosis Comments SCREEN TEST Routine 05/09/2012 16: 10 EST documented in this encounter Results * SCREEN TEST (05/09/2012 16:10 EST) Screen Test NEGATIVE [facility] 05/09/2012 16:1 0 EST Provider Unknown BLOOD BANK TESTS [facility] [address] [place] [address] documented in this encounter Visit Diagnoses Not on filedocumented in this encounter Care Teams Curriculum Development Specialist Relationship Specialty Start Date End Date William Carrero MD PCP - General 12/16/10 09/18/17 documented as of this encounter
[2024-02-23 10:17] LABS: HCT 42.1 % (36.0-46.0); HGB 14.3 g/dL (11.2-15.7); MCH 29.2 pg (27.0-33.0); MCV 86 fL (80-95); MPV 9.8 fL (8.0-11.0); Platelet Count 355 10^3/uL (130-400); RDW 11.7 % (11.7-14.6); RDW-SD 36.3 fL; WBC 10.43 10^3/uL (4.4-10.8)
[2024-02-23 10:59] LABS: ALT 32 U/L (14-59); AST 19 U/L (15-37); Albumin 3.9 g/dL (3.4-5.0); Alkaline Phosphatase 78 U/L (46-116); Anion Gap 8.8 mmol/L (3-11); BUN 11 mg/dL (7-18); Bilirubin, Total 0.67 mg/dL (0.2-1.0); CO2 27.2 mmol/L (21.0-32.0); CREATININE 0.9 mg/dL (0.55-1.02); Calcium 9.1 mg/dL (8.5-10.1); Calculated LDL 120 mg/dL (<100); Chloride 102 mmol/L (98-107); Cholesterol 185 mg/dL (<200); Estimated GFR 84.44 (mL/min/1.73m2); Glucose 113 mg/dL (74-106); HDL Cholesterol 48 mg/dL (40-60); Sodium 138 mmol/L (136-145); Total Protein 7.8 g/dL (6.4-8.2); Triglyceride 85 mg/dL (<150); Vitamin D 25 Total 29.3 ng/mL (30-100)
== END 2024-02-23 01:11 | disposition home or self-care (01) ==
PROVIDERS: PCP Family Medicine; Visit Provider Family Medicine
DX: Z00.00 Encounter for general adult medical examination without abnormal findings (principal)
CPT/HCPCS: 36415; 80053; 80061; 82306; 85027

== ENCOUNTER 2024-03-27 00:39 | Outpatient (CLI) | payer BC, SELFPAY ==
--- NOTE | 2024-03-27 | DI.MAMMO_ITS ---
Exam(s) MAMMO SCREENING EXAM: MAMMO SCREENING CLINICAL HISTORY: FAMILY H/O BREAST CA, Z80.3, ADULT HEALTH EXAMINATION, SCREENING. TECHNIQUE: Bilateral full field digital CC and MLO mammographic images were obtained with 3D tomosyn thesis and utilizing computer aided detection (CAD). COMPARISON: None. This is a baseline mammogram on this 39-year-old FINDINGS: There are no CAD designations There are no spiculated masses nor malignant appearing microcalcification groups. There is no significant architectural distortion nor skin thickening-retraction. IMPRESSION: No radiographic evidence of malignancy. BI-RADS Category 1 - Negative Breast Density - Category B - Scattered areas of fibroglandular density Breast density Category C or D implies that the patient has dense breast tissue. Dense breast tissue can make it harder to find cancer on a mammogram. Dense breast tissue is also associated with an incr eased risk of breast cancer. This information about the result of the mammogram report was provided to the patient to raise their awareness. Use this report when you speak with the patient about their risks for breast cancer, which includes their family history. At that time, you may recommend additional screening tests (Ultrasoun d or MRI) as these tests may add significant information. A negative radiographic report should not delay biopsy if a dominant or clinically suspicious mass is present. Up to ten percent of cancers are not identified on mammography. A negative report may reinforce clinical impression. Adenosis and dense breasts may obscure an underlying neoplasm. False positive reports average 6 to 10%. Patient will receive a letter notifying them of these results.
== END 2024-03-27 00:59 ==
PROVIDERS: PCP Family Medicine; Visit Provider Family Medicine
DX: Z12.31 Encounter for screening mammogram for malignant neoplasm of breast (principal); Z80.3 Family history of malignant neoplasm of breast
CPT/HCPCS: 77063; 77067

== ENCOUNTER 2024-10-29 06:19 | Day surgery (SDC) | payer BC, SELFPAY ==
[2024-10-29 06:19] VITALS: BP 128/92; PULSE 63; RESP 16; TEMP 36.8; O2SAT 97
[2024-10-29] MEDS: Cephalexin 500 MG CAP 1000 MG PO (06:36)
--- NOTE | 2024-10-29 07:11 | PDOC.DSDIS_ITS ---
Date of service: 10/29/24 Discharge Plan Disposition Patient Disposition: Home Condition: Good Discharge Details Reason For Visit: Left carpal tunnel syndrome Attending Provider: Jordy Perez Primary Care Provider: Jesi Field Home Meds and New Rx's Prescriptions: New acetaminophen 500 mg tablet 500 mg PO Q6H PRN (Reason: pain) Qty: 60 2RF hydrocodone-acetaminophen 5-325 mg tablet 1 tab PO Q6H PRN (Reason: severe pain) Qty: 3 0RF Rx Instructions: Take one tablet up to every 6 hours as needed for severe postoperative pain ibuprofen 600 mg tablet 600 mg PO TID PRN (Reason: pain) Qty: 60 0RF Continued losartan 100 mg tablet 100 mg PO DAILY Mirena 21 mcg/24hr (up to 8 yrs) 52 mg intrauterine device 1 device intrauterine ONCE Rx Instructions: as a single dose albuterol sulfate 90 mcg/actuation HFA aerosol inhaler 1 inh inhalation ONCE Discharge Instructions Stand Alone Forms: Francisco Gale (DSU), Chris Zheng Tunnel Release Referrals: Jordy Perez MD [ [facility] ST[facility]FF [facility]YSICIAN] - 11/08/24 9:00 am Activity:: Elevate Remove Dressings/Wound Care:: 48 hours Shower/Bathe:: 48 hours Diet:: As Tolerated Discharge Orders Discharge Orders: Discharge Order (Routine); Ordered 10/29/24 Ordered By: Kinga Hernandez
[2024-10-29] MEDS: Sodium Bicarbonate 50 MEQ/50 ML VIAL (07:34)
[2024-10-29] MEDS: Lidocaine 1% Multi-Dose W/EPI 1/100,000 50 ML VIAL (07:34)
[2024-10-29 07:54] VITALS: BP 134/90; PULSE 61; RESP 16; TEMP 36; O2SAT 99
--- NOTE | 2024-10-29 07:56 | W.PM.OP ---
Operative Note Operative Note PRE-OP DIAGNOSIS: Left Carpal Tunnel Syndrome POST-OP DIAGNOSIS: same PROCEDURE: Left Endoscopic Carpal Tunnel Release SURGEON: Jordy Perez ANESTHESIA TYPE: Local By Surgeon Refer to Anesthesia Record ESTIMATED BLOOD LOSS: 0 PATHOLOGY: none sent TOURNIQUET TIME: 10 COMPLICATIONS: None Patient was transported to: same day Patient's condition: stable Indications: I have seen Sandra in clinic for symptoms of carpal tunnel syndrome. The numbness, tingling, and pain limited function. Clinical exam findings confirmed the diagnosis of carpal tunnel syndrome. Nonoperative measures such as bracing, time, activity modifications had been tried but disability and pain persisted. I discussed carpal tunnel release with the patient. I reviewed the risks of the procedure to include, but not limited to, bleeding, infection, pain, stiffness, incomplete release, damage to nerves or vessels, persistent numbness, recurrence. Despite these risks, the patient elected to proceed. Findings: There was tightened carpal tunnel. This was dilated and released successfully with the endoscopic with increased space within the tunnel. The antebrachial fascia was released proximally freeing the median nerve at the wrist. Procedure Description: Sandra was greeted in the preoperative holding area where the correct side was identified and marked. The consent was reviewed with the patient and signed. The history and physical was updated. All questions were answered. She was taken back to the operating room. The patient was placed into the supine position on the operating room table with the left arm on an arm board. A nonsterile tourniquet was placed high onto the arm. All bony prominences were well padded. Prophylactic antibiotics in the form of cephalexin were administered. The left arm was then prepped with Chloraprep and draped in a standard fashion with stockinette and extremity drape. A timeout to confirm correct identity, side and site, procedure, allergies, anesthesia, and medical concerns was performed. The surgical site was marked in the volar wrist creases in line with the radial border of the fourth ray. This area was anesthetized with approximately 6cc of 1% Lidocaine. The limb was then exsanguinated with an Esmarch. The skin was incised with a 15 blade, approximately 1cm. The skin only was cut and the deeper tissue was dissected bluntly with a tenotomy scissor, avoiding passing nerve and venous structures. The fascia was penetrated and opened bluntly. A two-prong skin hook was placed under this proximal fascial edge. A series of hamate finders were used to identify and dilate the carpal tunnel. Synovial elevator was used to free synovial attachments to the underside of the transverse carpal ligament. My thumb was kept in the palm to elsa the distal extent of the carpal tunnel and correctly position the hand. The [employer]aire endoscope was inserted but terminal insertion was actually quite challenging. I returned to the synovial elevator to remove attachments within the carpal tunnel and the seem to be quite free. I then was able to advance the scope about detention. I then did interval release of the transverse carpal ligament starting at the midpoint and working proximally. I then reinserted the scope with better visualization of the wrist and fat interposed in the way. With manipulation of scope I was able to advance it to the terminal end of the transverse carpal ligament and release the remaining portion of the transverse carpal ligament. The scope was reinserted and the TCL was split into two flaps. The scope was withdrawn and the proximal aspect of the carpal tunnel was grossly inspected and appeared released The antebrachial fascia at the level of the wrist was then freed from the overlying skin and then the underlying median nerve with blunt dissection. This was transected longitudinally for about 3cm proximal to the wrist incision. The wound was then irrigated with easy flow of irrigant distally and proximally. The incision was closed with a single 4-0 Nylon suture. The wound was dressed with Xeroform, Gauze, Kerlix and Dav. The tourniquet was deflated with the initial dressing and held with some pressure. Blood flow returned easily to all digits with capillary refill less than 2 seconds. The patient tolerated the procedure well and was returned to the Same Day Surgery area in a stable condition suffering no known complication. Date of Procedure: 10/29/24
== END 2024-10-29 08:04 | disposition home or self-care (01) ==
PROVIDERS: PCP Family Medicine; Visit Provider Student in an Organized Health Care Education/Training Program
PROC: 01N54ZZ Release Median Nerve, Percutaneous Endoscopic Approach (ICD-10-PCS; CPT 29848; principal; 2024-10-29 07:30)
DX: G56.02 Carpal tunnel syndrome, left upper limb (principal)
CPT/HCPCS: 29848; J2004

== ENCOUNTER 2025-01-22 02:29 | Outpatient (CLI) | payer BC, SELFPAY ==
--- NOTE | 2025-01-23 13:03 | W.NUTRFU ---
Date of service: 01/22/25 Time of Service: 13:00 Nutrition Note NOTE: Sandra referred for nutrition visit for wt mgt guidance. Has struggled historically and relates she has done some yoyo dieting. She is happy to share that a Dx of HTN kind of scared her recently and she is trying to eat healthier. Since HTN dx she has cut out soda , where she drank multiple cans prior. She has also given up on energy drinks and has raised her awareness about sodium. She has a hx of cholecystectomy and relates diarrhea and cramping sx with higher fat meals. She typically gets up at 630 and might have a coffee of coffee with yogurt by about 8am. She has a light lunch around 1230/1pm which might be small amount of leftovers from dinner of just some cheese and crackers. Dinner is biggest meal of the day around 5/5:30 and is the family meal. She does relate that she is no stranger to snacking after dinner and doesn't choose healthy options. Initial assessment of diet is many days she may miss her protein goal with sometimes no protein intake until lunch meal. Also would suggest her diet lower in fiber than what would benefit weight loss goal of a minimum of 30 grams per day. Added sugars may also be high with evening snacking. She does not engage in much exercise currently outside of walking. REviewed 4 big priorities that need to be met: 1) stay in kcal deficit most days. 2) meet protein goals and mix in plant protein to avoid excessive kcals that accompany animal protein choices. 3) meet minimum goal of 30g fiber most days, 4) limit added sugar to 30g or less most days. Also talked about hydration, sleep, stress mgt and exercise as pieces of the puzzle. encouraged earlier bkfst with trying to find healthier alternative to snack at night of just try not to snack after 6pm and focus on getting up and having bigger breakfast Suggested preloading meals with 16oz water and 1 med apple prior to lunch and supper to help curb intake. Showed resources for menu planning towards the following parameters: 1700kcals (estimated current needs are 2145), 170g total carbs, 170g protein, 38g total fat, at least 30 g fiber and no more than 30 g added sugar. She has my contact info should she desire follow up or would like to trouble shoot over a phone call Time Spent in Nutritional Counseling and Treatment: 25 min
== END 2025-01-22 02:30 | disposition home or self-care (01) ==
LOC: DS 02:31
PROVIDERS: PCP Family Medicine; Visit Provider Dietitian, Registered
DX: E66.9 Obesity, unspecified (principal)
CPT/HCPCS: 00123; 97802